=== PATIENT | female | born 1960 | race Hispanic/Latino ===

== ENCOUNTER 2017-06-01 07:56 | Outpatient (CLI) | payer BC | END 2017-06-01 07:57 | disposition home or self-care (01) | LOC: BICBD 07:56 | PROVIDERS: ATTEND Family Medicine | DX: Z12.31 Encounter for screening mammogram for malignant neoplasm of breast (principal); Z13.820 Encounter for screening for osteoporosis; M85.80 Other specified disorders of bone density and structure, unspecified site; N63.10 Unspecified lump in the right breast, unspecified quadrant | CPT/HCPCS: 77063; 77067; 77080 ==

== ENCOUNTER 2017-08-12 07:25 | Outpatient (CLI) | payer BC ==
[2017-08-12] MEDS ORDERED: ISOVUE-370 76%-LOCM 1 ML ONE (13:36)
== END 2017-08-12 07:26 | disposition home or self-care (01) ==
LOC: BICCT 07:25
PROVIDERS: ATTEND Family Medicine
DX: R10.30 Lower abdominal pain, unspecified (principal); K80.20 Calculus of gallbladder without cholecystitis without obstruction
CPT/HCPCS: 74178

== ENCOUNTER 2017-09-10 08:32 | Outpatient (CLI) | payer BC ==
[2017-09-10 10:02] LABS: #Eosinphils 0.1 thou/uL (0.0-0.7); #Lymphocytes 2.8 thou/uL (1.20-3.40); #Monocytes 0.9 thou/uL (0.11-0.59); #Neutrophils 6.4 thou/uL (1.40-6.50); %Basophils 0.5 % (0.0-1.0); %Eosinophils 1.1 % (0.0-10.0); %Lymphocytes 27.1 % (21.0-51.0); %Monocytes 8.4 % (0.0-10.0); %Neutrophils 62.9 % (42.0-75.0); Mean Corpuscular Hemoglobin 28.3 pg (27.0-31.0); Mean Corpuscular Volume 85.8 fl (81.0-99.0); Mean Platelet Volume 8.4 fL (7.4-10.4); Platelet Count 249 thou/uL (130-400); RBC Distribution Width 12.3 % (11.5-14.5); Red Blood Cell (RBC) Count 4.96 mill/uL (4.20-5.40); White Blood Cell (WBC) Count 10.1 thou/uL (4.8-10.8)
[2017-09-10 10:20] LABS: ALT (SGPT) 15 U/L (8-55); AST (SGOT) 19 U/L (5-34); Albumin 4.2 g/dL (3.5-5.0); Alkaline Phosphatase 91 U/L (40-150); Anion Gap 11 mmol/L (10-20); BUN (Urea Nitrogen) 17 mg/dL (9.8-20.1); Bilirubin, Direct 0.1 mg/dL (0.1-0.3); Bilirubin, Total 0.4 mg/dL (0.2-1.2); Calc. Creatinine Clearance 0 mL/min (70-130); Calcium 9.2 mg/dL (7.8-10.44); Carbon Dioxide 27 mmol/L (22-29); Chloride 106 mmol/L (98-107); Estimated GFR-MDRD 84; Globulin 2.7 g/dL (2.4-3.5); Glucose 109 mg/dL (70-105); Potassium 3.3 mmol/L (3.5-5.1); Protein, Total 6.9 g/dL (6.0-8.3); Sodium 141 mmol/L (136-145)
--- NOTE | 2017-09-10 22:16 | EKG ---
Test Reason : Blood Pressure : / mmHG Vent. Rate : 065 BPM Atrial Rate : 065 BPM P-R Int : 134 ms QRS Dur : 072 ms QT Int : 430 ms P-R-T Axes : 020 017 007 degrees QTc Int : 447 ms Normal sinus rhythm Normal ECG When compared with ECG of 23-OCT-2016 08:09, No significant change was found Confirmed by BERNABE FINE, DR. Gupta ([id number]) on 09/10/2017 10:15:53 PM Referred By: DEONDRE Confirmed By:DR. Candy KIDD MD
== END 2017-09-10 08:33 | disposition home or self-care (01) ==
LOC: LABBT 08:32
PROVIDERS: ATTEND Surgery
DX: Z01.818 Encounter for other preprocedural examination (principal); K80.20 Calculus of gallbladder without cholecystitis without obstruction
CPT/HCPCS: 80053; 80076; 85025; 93005; 93010

== ENCOUNTER 2017-09-15 07:19 | Day surgery (SDC) | payer BC ==
[2017-09-10 08:58] VITALS: BMI 33.6
[2017-09-15] MEDS ORDERED: cefOXitin 2 GM VIAL ONE (08:48)
[2017-09-15] MEDS ORDERED: Sodium Chloride 0.9% 100 ML ONE (08:48)
[2017-09-15] MEDS ORDERED: Bupivacaine/Epinephrine 0.25% 30 ML VIAL ONE (08:52)
[2017-09-15] MEDS ORDERED: Fentanyl 100 MCG/2 ML VIAL ONE (09:00)
--- NOTE | 2017-09-15 10:30 | OP ---
PREOPERATIVE DIAGNOSIS: Symptomatic cholelithiasis. SURGEON: Landen Mcgill M.D. PROCEDURE PERFORMED: Laparoscopic cholecystectomy. INDICATIONS: A 57-year-old female who has been having episodic right upper quadrant pain radiating t o the back associated with nausea. Ultrasound showed cholelithiasis. FINDINGS: Multiple cholelithiasis. She had a fatty gallbladder wall. PROCEDURE IN DETAIL: After informed consent was obtained, patient was taken to the operating room an d given general endotracheal anesthesia. She was placed in supine position. Abdomen was prepped and draped in usual fashion. Local anesthesia infiltrated subcutaneously and deep. A subumbilical inci martin was performed and subcu divided sharply. Fascia grasped, two stay sutures of 0 Vicryl placed to either side of midline. Midline incised. Digital palpation revealed no local adhesions. A blunt 1 0-12 mm trocar inserted. Pneumoperitoneum was created to a pressure of 15 mmHg. Zero-degree laparos cope inserted under direct vision, three 5 mm ports placed subcostally. Gallbladder grasped and adva nced superiorly. The peritoneum was lysed distally and revealed cystic duct and artery. These were triply ligated with Hemoclips and divided. The gallbladder was removed from its fossa utilizing elec trocautery and removed from the abdomen through the umbilical port. Now, the gallbladder itself was partially intrahepatic and so there was just a lot of hemorrhage from the gallbladder wall. This was controlled utilizing electrocautery as well as Nick powder. Hemostasis was assured. Trocars and retractors removed. The fascia closed with interrupted 0 Vicryl suture. The skin closed with interr upted 4-0 Rapide. Dermabond applied. The patient tolerated the procedure well and was transferred t o recovery in good condition. Sponge and needle count verified correct x2.
[2017-09-15] MEDS ORDERED: HYDROcodone/Acetaminophen 7.5/325 mg Tablet ONE (12:18)
[2017-09-15] MEDS ORDERED: Glycopyrrolate 0.2 MG/ML 5 ML SYRINGE ONE (14:24)
[2017-09-15] MEDS ORDERED: Dexamethasone 20 MG/5 ML VIAL ONE (14:24)
[2017-09-15] MEDS ORDERED: Ketorolac Tromethamine 30 MG/ML VIAL ONE (14:24)
[2017-09-15] MEDS ORDERED: PROPOFOL 200 MG/20 ML VIAL ONE (14:24)
[2017-09-15] MEDS ORDERED: Lidocaine 1% PF 5 ML VIAL ONE (14:24)
[2017-09-15] MEDS ORDERED: Ondansetron HCl/PF 4 MG/2 ML Vial ONE (14:24)
== END 2017-09-15 12:25 | disposition home or self-care (01) ==
LOC: SDC 07:19
PROVIDERS: ATTEND Surgery
PROC: 0FT44ZZ Resection of Gallbladder, Percutaneous Endoscopic Approach (ICD-10-PCS; principal; 2017-09-15)
DX: K80.10 Calculus of gallbladder with chronic cholecystitis without obstruction (principal); M06.9 Rheumatoid arthritis, unspecified; E78.5 Hyperlipidemia, unspecified; M85.80 Other specified disorders of bone density and structure, unspecified site; M81.0 Age-related osteoporosis without current pathological fracture; Z88.0 Allergy status to penicillin; Z79.899 Other long term (current) drug therapy; Z79.52 Long term (current) use of systemic steroids; Z88.8 Allergy status to other drugs, medicaments and biological substances
CPT/HCPCS: 88304; J0131; J0694; J1100; J1885; J2001; J2405; J2704; J3010; J7050

== ENCOUNTER 2019-02-22 09:22 | Outpatient (CLI) | payer BC ==
--- NOTE | 2019-02-22 09:51 | RAD ---
EXAM: Chest PA and lateral: HISTORY: Cough x4 days COMPARISON: 04/22/2008 FINDINGS: Heart: Normal cardiac silhouette Aorta: Unremarkable Pulmonary vessels: Normal Costophrenic angles: Costophrenic angles are clear. Lungs: No consolidation or masses. Pneumothorax: No pneumothorax Osseous structures: No osseous abnormalities IMPRESSION: No acute cardiopulmonary process.
== END 2019-02-22 09:23 | disposition home or self-care (01) ==
LOC: BICRAD 09:22
PROVIDERS: ATTEND Family Medicine
DX: R91.8 Other nonspecific abnormal finding of lung field (principal)
CPT/HCPCS: 71046

== ENCOUNTER 2022-07-30 12:11 | Emergency (ER) | payer OTHER ==
[2022-07-30 12:50] LABS: #Basophils 0.1 thou/uL (0.0-0.2); #Eosinphils 0.3 thou/uL (0.0-0.7); #Lymphocytes 4.2 thou/uL (1.20-3.40); #Monocytes 0.8 thou/uL (0.11-0.59); #Neutrophils 9.5 thou/uL (1.40-6.50); %Basophils 0.4 % (0.0-1.0); %Eosinophils 1.8 % (0.0-10.0); %Lymphocytes 28.2 % (21.0-51.0); %Monocytes 5.2 % (0.0-10.0); %Neutrophils 64.4 % (42.0-75.0); Hemoglobin 8.2 g/dL (12.0-16.0); Mean Corpuscular HGB CONC 32.1 g/dL (32.0-36.0); Mean Corpuscular Hemoglobin 25.6 pg (27.0-31.0); Mean Corpuscular Volume 79.7 fl (78.0-98.0); Mean Platelet Volume 6.9 fL (7.4-10.4); Platelet Count 599 10x3/uL (130-400); RBC Distribution Width 15.8 % (11.5-14.5); White Blood Cell (WBC) Count 14.8 10x3/uL (4.8-10.8)
[2022-07-30 13:16] LABS: ALT (SGPT) 72 U/L (8-55); AST (SGOT) 81 U/L (5-34); Albumin 3.6 g/dL (3.4-4.8); Alkaline Phosphatase 253 U/L (40-110); Anion Gap 15 mmol/L (10-20); BUN (Urea Nitrogen) 11 mg/dL (9.8-20.1); Bilirubin, Total 0.4 mg/dL (0.2-1.2); Calc. Creatinine Clearance 0 mL/min (70-130); Calcium 9.8 mg/dL (7.8-10.44); Carbon Dioxide 25 mmol/L (23-31); Chloride 103 mmol/L (98-107); Estimated GFR 103; Globulin 3.1 g/dL (2.4-3.5); Glucose 114 mg/dL (80-115); Potassium 3.8 mmol/L (3.5-5.1); Protein, Total 6.7 g/dL (5.8-8.1); Sodium 139 mmol/L (136-145)
== END 2022-07-30 13:46 ==
LOC: ERS 12:11
DX: G89.29 Other chronic pain (principal); D64.9 Anemia, unspecified; I10 Essential (primary) hypertension
CPT/HCPCS: 80053; 85025; 86850; 86900; 86901; 99284